=== PATIENT | female | born 1960 | race Caucasian/White ===

== ENCOUNTER → 2024-11-18 | Outpatient (CLI) | payer BC ==
[2024-11-18 10:56] LABS: Source, Urine Clean Catch
[2024-11-18 13:12] LABS: Glucose Qualitative, Urine Neg (Neg); Ketones, Urine Neg (Neg); Leukocyte Esterase, Urine 3+ (Neg); Protein, Urine 2+ (Neg); Specific Gravity, Urine 1.010 (1.003-1.022); Urobilinogen, Urine 2+ (Normal)
[2024-11-18 13:20] LABS: Bilirubin, Urine 2+ (Neg); Color, Urine Orange (P-Yellow)
[2024-11-18 13:23] LABS: White Blood Cells, Urine 50-100 /hpf (0-5)
== END ==
LOC: LAB 10:55 → LAB SHORT 10:55 → LAB FUT 11-18 10:55
PROVIDERS: Family Medicine
DX: R30.0 Dysuria (principal)
CPT/HCPCS: 81001; 87077; 87086; 87186